=== PATIENT | male | born 1965 | race Caucasian/White ===

== ENCOUNTER 2018-08-28 17:25 | Emergency (ER) | payer SELFPAY ==
[2018-08-28 18:33] LABS: ANION GAP 15.8; CHLORIDE,CL 102 mmol/L (101-111); SODIUM,NA 137 mmol/L (135-145)
--- NOTE | 2018-08-28 18:43 | EDM.PDOC ---
Scribed by Ina Chandler 08/28/18 [id number] for Jessi Car NP ED HPI GENERAL MEDICAL PROBLEM - General Chief Complaint: Neurological Problem Stated Complaint: AMBULANCE Time Seen by Provider: 08/28/18 17:36 Source of Information: Reports: Patient, EMS, EMS Notes Reviewed, RN, RN Notes Reviewed History Limitations: Reports: No Limitations - History of Present Illness INITIAL COMMENTS - FREE TEXT/NARRATIVE: Patient presents to ER per [facility] with complaint of seizure today at 3: 30 p.m. It was witnessed by boss. EMS reports post-ictal enroute. Admits to slight headache. On March 15, 2017 he fell off ladder 12 feet. He was in [facility] 4 weeks and transferred to [place]. He went back to [facility] in July 2017. One day after getting home he had his first seizure. Second time having seizures November 13, 2017. Last seizure December 14, 2017 fell and broke ribs. States has not had head CT since onset of seizures. He has had no fever or chills or recent illness. No nausea, vomiting and diarrhea. He is being treated by a herbalist in [facility]. No anti-seizure meds. Onset: Today Severity: Severe Improves with: Reports: None Worsens with: Reports: None Associated Symptoms: Reports: No Other Symptoms Right Elbow Pain Score (Numeric/FACES): 6 - Related Data Allergies Allergy/AdvReac Type Severity Reaction Status Date / Time Barbiturates Allergy Cannot Verified 08/28/18 17:36 Remember Sulfa (Sulfonamide Allergy Cannot Verified 08/28/18 17:36 Antibiotics) Remember thiopental [From Pentothal] Allergy Cannot Verified 08/28/18 17:36 Remember Home Meds: Home Meds . [Unable to Verify Home Med List] 08/28/18 [History] ED ROS GENERAL - Review of Systems Review Of Systems: ROS reveals no pertinent complaints other than HPI. - Physical Exam Exam: See Below Exam Limited By: No Limitations General Appearance: Alert, WD/WN, No Apparent Distress Eye Exam: Bilateral Eye: EOMI, Normal Inspection, PERRL Ears: Normal External Exam, Normal Canal, Hearing Grossly Normal, Normal TMs Nose: Normal Inspection, Normal Mucosa, No Blood Throat/Mouth: Normal Inspection, Normal Lips, Normal Teeth, Normal Gums, Normal Oropharynx, Normal Voice, No Airway Compromise Head Exam: Atraumatic, Normocephalic Neck: Normal Inspection, Supple, Non-Tender, Full Range of Motion Respiratory/Chest: No Respiratory Distress, Lungs Clear, Normal Breath Sounds, No Accessory Muscle Use, Chest Non-Tender Cardiovascular: Normal Peripheral Pulses, Regular Rate, Rhythm, No Edema, No Gallop, No JVD, No Murmur, No Rub GI/Abdominal: Normal Bowel Sounds, Soft, Non-Tender, No Organomegaly, No Distention, No Abnormal Bruit, No Mass (Male) Exam: Deferred Rectal (Males) Exam: Deferred Neuro Exam (Abbreviated): Alert, Oriented, CN II-XII Intact, Normal Cognition, Normal Gait, Normal Reflexes, No Motor/Sensory Deficits Back Exam: Normal Inspection, Full Range of Motion, NT Extremities: Normal Inspection, Normal Range of Motion, Non-Tender, No Pedal Edema, Normal Capillary Refill Psychiatric: Normal Affect, Normal Mood Skin Exam: Other (right elbow abrasion) Course - Vital Signs Last Recorded V/S: Last Vital Signs Temp 98.7 F 08/28/18 17:20 Pulse 88 08/28/18 17:20 Resp 14 08/28/18 17:20 BP 138/89 08/28/18 17:20 Pulse Ox 100 08/28/18 17:20 - Orders/Labs/Meds Orders: Active Orders 24 hr Category Date Time Status EKG Documentation Completion [RC] STAT Care 08/28/18 17:55 Active Chest 1V Frontal [CR] Stat Exams 08/28/18 17:55 Taken Head wo Cont [CT] Stat Exams 08/28/18 17:56 Taken Lumbar Spine 2 or 3V [CR] Stat Exams 08/28/18 18:21 Taken Phenytoin Med 08/28/18 19:01 Once 300 mg PO ONETIME ONE Labs: Laboratory Tests 08/28/18 08/28/18 08/28/18 Range/Units 18:10 18:10 18:10 WBC 14.8 H (5.0-10.0) 10^3/uL RBC 5.26 (4.6-6.2) 10^6/uL Hgb 15.6 (14.0-18.0) g/dL Hct 45.9 (40.0-54.0) % MCV 87.3 (80-100) fL MCH 29.7 (27.0-34.0) pg MCHC 34.0 (33.0-35.0) g/dL Plt Count 262 (150-450) 10^3/uL Neut % (Auto) 85.4 H (42.2-75.2) % Lymph % (Auto) 7.1 L (20.5-50.1) % Dolores % (Auto) 7.0 (2-8) % Eos % (Auto) 0.3 L (1.0-3.0) % Baso % (Auto) 0.2 (0.0-1.0) % PT 9.9 (9.0-12.0) SEC INR 1.0 (0.9-1.2) Sodium 137 (135-145) mmol/L Potassium 3.8 (3.6-5.0) mmol/L Chloride 102 (101-111) mmol/L Carbon Dioxide 23.0 (21.0-31.0) mmol/L Anion Gap 15.8 BUN 14 (7-18) mg/dL Creatinine 0.9 (0.6-1.3) mg/dL Est Cr Clr Drug Dosing 111.63 mL/min Estimated GFR (MDRD) > 60 BUN/Creatinine Ratio 15.55 Glucose 94 (74-105) mg/dL Calcium 8.9 (8.4-10.2) mg/dl Total Bilirubin 0.9 (0.2-1.0) mg/dL AST 28 (10-42) IU/L ALT 27 (10-60) IU/L Alkaline Phosphatase 78 (42-121) IU/L Troponin I < 0.02 (0.00-0.02) ng/ml Total Protein 7.6 (6.7-8.2) g/dl Albumin 4.0 (3.2-5.5) g/dl Globulin 3.6 Albumin/Globulin Ratio 1.11 Urine Color (YELLOW) Urine Appearance (CLEAR) Urine pH (5.0-9.0) Ur Specific [place] (1.005-1.030) Urine Protein (NEGATIVE) Urine Glucose (UA) (NEGATIVE) Urine Ketones (NEGATIVE) Urine Occult Blood (NEGATIVE) Urine Nitrite (NEGATIVE) Urine Bilirubin (NEGATIVE) Urine Urobilinogen (0.2-1.0) mg/dL Ur Leukocyte Esterase (NEGATIVE) Urine RBC /HPF Urine WBC (0-5/HPF) /HPF Ur Epithelial Cells (NOT SEEN) /HPF Urine Bacteria (0-FEW/HPF) /HPF Fine Granular Casts (NOT SEEN) /LPF Urine Mucus (NOT SEEN) /LPF Urine Opiates Screen (NEGATIVE) Ur Oxycodone Screen (NEGATIVE) Urine Methadone Screen (NEGATIVE) Ur Barbiturates Screen (NEGATIVE) U Tricyclic Antidepress (NEGATIVE) Ur Phencyclidine Scrn (NEGATIVE) Ur Amphetamine Screen (NEGATIVE) U Methamphetamines Scrn (NEGATIVE) Urine MDMA Screen (NEGATIVE) U Benzodiazepines Scrn (NEGATIVE) Urine Cocaine Screen (NEGATIVE) U Marijuana (THC) Screen (NEGATIVE) Ethyl Alcohol < 5 mg/dL 08/28/18 08/28/18 Range/Units 18:33 18:33 WBC (5.0-10.0) 10^3/uL RBC (4.6-6.2) 10^6/uL Hgb (14.0-18.0) g/dL Hct (40.0-54.0) % MCV (80-100) fL MCH (27.0-34.0) pg MCHC (33.0-35.0) g/dL Plt Count (150-450) 10^3/uL Neut % (Auto) (42.2-75.2) % Lymph % (Auto) (20.5-50.1) % Dolores % (Auto) (2-8) % Eos % (Auto) (1.0-3.0) % Baso % (Auto) (0.0-1.0) % PT (9.0-12.0) SEC INR (0.9-1.2) Sodium (135-145) mmol/L Potassium (3.6-5.0) mmol/L Chloride (101-111) mmol/L Carbon Dioxide (21.0-31.0) mmol/L Anion Gap BUN (7-18) mg/dL Creatinine (0.6-1.3) mg/dL Est Cr Clr Drug Dosing mL/min Estimated GFR (MDRD) BUN/Creatinine Ratio Glucose (74-105) mg/dL Calcium (8.4-10.2) mg/dl Total Bilirubin (0.2-1.0) mg/dL AST (10-42) IU/L ALT (10-60) IU/L Alkaline Phosphatase (42-121) IU/L Troponin I (0.00-0.02) ng/ml Total Protein (6.7-8.2) g/dl Albumin (3.2-5.5) g/dl Globulin Albumin/Globulin Ratio Urine Color Yellow (YELLOW) Urine Appearance Clear (CLEAR) Urine pH 5.5 (5.0-9.0) Ur Specific [place] >= 1.030 (1.005-1.030) Urine Protein 30 H (NEGATIVE) Urine Glucose (UA) Negative (NEGATIVE) Urine Ketones Negative (NEGATIVE) Urine Occult Blood Negative (NEGATIVE) Urine Nitrite Negative (NEGATIVE) Urine Bilirubin Negative (NEGATIVE) Urine Urobilinogen 0.2 (0.2-1.0) mg/dL Ur Leukocyte Esterase Negative (NEGATIVE) Urine RBC 0-5 /HPF Urine WBC 0-5 (0-5/HPF) /HPF Ur Epithelial Cells Few (NOT SEEN) /HPF Urine Bacteria Moderate H (0-FEW/HPF) /HPF Fine Granular Casts Few H (NOT SEEN) /LPF Urine Mucus Moderate H (NOT SEEN) /LPF Urine Opiates Screen Negative (NEGATIVE) Ur Oxycodone Screen Negative (NEGATIVE) Urine Methadone Screen Negative (NEGATIVE) Ur Barbiturates Screen Negative (NEGATIVE) U Tricyclic Antidepress Negative (NEGATIVE) Ur Phencyclidine Scrn Negative (NEGATIVE) Ur Amphetamine Screen Negative (NEGATIVE) U Methamphetamines Scrn Negative (NEGATIVE) Urine MDMA Screen Negative (NEGATIVE) U Benzodiazepines Scrn Negative (NEGATIVE) Urine Cocaine Screen Negative (NEGATIVE) U Marijuana (THC) Screen Negative (NEGATIVE) Ethyl Alcohol mg/dL - Radiology Interpretation Free Text/Narrative:: Lumbar spine xray: FINDINGS: Vertebrae: Mild multilevel degenerative changes. No acute fracture Organs: There is punctate calcification projecting over mid right renal shadow. Soft tissues: Normal. IMPRESSION: 1. No acute fracture. 2. Possible right nephrolithiasis Thank you for allowing us to participate in the care of your patient. Dictated and Authenticated by: Jacob Alejo MD 08/28/2018 6:46 PM Central Time ([place] & [place]) Chest xray: FINDINGS: Lungs: Unremarkable. No consolidation. Pleural space: Unremarkable. No pleural effusion. No pneumothorax. Heart/Mediastinum: Unremarkable. No cardiomegaly. Bones/joints: Unremarkable. IMPRESSION: No acute findings. Thank you for allowing us to participate in the care of your patient. Dictated and Authenticated by: Jacob Alejo MD 08/28/2018 6:45 PM Central Time ([place] & [place]) Head CT: FINDINGS: Brain: There is prominent encephalomalacia along the inferior frontal lobes, right greater than left. Smaller areas of subtle malacia inferior lateral temporal lobes. No acute hemorrhage Ventricles: Normal. No ventriculomegaly. Bones/joints: Unremarkable. No acute fracture. Sinuses: Visualized sinuses are unremarkable. No fluid levels. Mastoid air cells: Visualized mastoid air cells are well aerated. No mastoid effusion. Soft tissues: Unremarkable. IMPRESSION: 1. No acute hemorrhage 2. Bifrontal and temporal encephalomalacia is most likely related to remote traumatic event. Thank you for allowing us to participate in the care of your patient. Dictated and Authenticated by: Jacob Alejo MD 08/28/2018 6:49 PM Central Time ([place] & [place]) See rad report Departure - Departure Time of Disposition: 19:04 Disposition: Home, Self-Care 01 Condition: Fair Clinical Impression: Seizure, Hx of traumatic brain injury - Discharge Information *PRESCRIPTION DRUG MONITORING PROGRAM REVIEWED*: No *COPY OF PRESCRIPTION DRUG MONITORING REPORT IN PATIENT ELIOT: No Instructions: Seizure, Adult, [id number] Forms: ED Department Discharge Additional Instructions: RX: Dilantin Drink plenty of water On Tuesday Morning make an appointment with a primary care provider in the clinic for further prescription of anti-seizure medication Request Neurology consult Return to ER with any further problems - My Orders Last 24 Hours: My Active Orders 08/28/18 17:55 EKG Documentation Completion [RC] STAT Chest 1V Frontal [CR] Stat 08/28/18 17:56 Head wo Cont [CT] Stat 08/28/18 18:21 Lumbar Spine 2 or 3V [CR] Stat 08/28/18 19:01 Phenytoin 300 mg PO ONETIME ONE - Assessment/Plan Last 24 Hours: My Active Orders 08/28/18 17:55 EKG Documentation Completion [RC] STAT Chest 1V Frontal [CR] Stat 08/28/18 17:56 Head wo Cont [CT] Stat 08/28/18 18:21 Lumbar Spine 2 or 3V [CR] Stat 08/28/18 19:01 Phenytoin 300 mg PO ONETIME ONE I have read and agree with the documentation that has been completed regarding this visit. By signing this record, I attest that the documentation was completed in my physical presence and is an accurate record of the encounter.
[2018-08-28] MEDS ORDERED: Phenytoin 100 MG Cap.ER PO ONE (19:01)
== END 2018-08-28 19:30 | disposition home or self-care (01) ==
LOC: DL.ED 17:25
DX: R56.9 Unspecified convulsions (principal); S50.311A Abrasion of right elbow, initial encounter; Z88.8 Allergy status to other drugs, medicaments and biological substances; Z88.2 Allergy status to sulfonamides; Z87.820 Personal history of traumatic brain injury; X58.XXXA Exposure to other specified factors, initial encounter
CPT/HCPCS: 36415; 70450; 71045; 72100; 80053; 80305; 81001; 84484; 85025; 85610; 93005; 99285; A9270; G0480